=== PATIENT | female | born 1990 ===

== ENCOUNTER 2021-03-31 23:29 | Inpatient (IN) | payer OTHER ==
--- OUTSIDE RECORDS SUMMARY | 2021-03-31 23:33 | XMS REPORT | Continuity of Care Document ---
:1990 Author Organization [facility] t Address [address] [place] [address] Care Team Providers Name Role Phone Radiology Attending Clinician Unavailable Milla Attending Clinician Doctor Unassigned, Name Attending Clinician Unavailable Argyle, Resident Attending Clinician Unavailable Nalini Attending Clinician [phone] NONE Attending Clinician Unavailable NONE Admitting Clinician Unavailable Problems This patient has no known problems. Allergies, Adverse Reactions, Alerts This patient has no known allergies or adverse reactions. Medications This patient has no known medications. Procedures This patient has no known procedures. Encounters Start End Encounter Admission Attending Care Care Encounter Source Date/Time Date/Time Type Type Clinicians Facility Department ID 2021-01-25 2021-01-25 [facility] Radiology [facility] [id number] 15:27:04 23:59:00 Encounter SPECIALTY [id number] CARE [id number] CENTER AT [id number] PRASHANT [address] [place] [address] 2021-01-20 2021-01-20 Letter ADALBERTO Loyola [id number] 00:00:00 00:00:00 (Out) Carmenelias RAGSDALEY [id number] [facility] [id number] 2021-01-11 2021-01-11 Orders Doctor GLOVER [id number] 00:00:00 00:00:00 Only Unassigned, ANTONIO [id number] [facility] [id number] 2021-01-04 2021-01-04 Office Pool, [facility] [id number] 12:46:28 14:34:15 Visit Resident [facility] [id number] CLINICS [id number] 2020-08-04 2020-08-04 Outpatient Nalini, WDOCS CHWDOCS [id number] 11:00:00 11:00:00 [facility] [id number] Results Test Description Test Time Test Comments Results Result Comments Source PROLACTIN, Serum 2020-04-06 07:49:00 Test Item Value Reference Range Interpretation Comme nts PROLACTIN (test code = 240072) 21.2 ng/mL 4.8-23.3 N PERFORMED AT: [facility] [address] [id number] [employer]: Cayetano Silva MD PHONE: [phone] [id number] 12:01:00 Test Item Value Reference Range Interpretation Comments Valproic Acid (test 56.0 ug/ml 50.0-100.0 Referenc e Range has code = VALPR) been adjusted to reflect Methodo logy recommendations . [id number] 12:01:00 Test Item Value Reference Range Interpretation Comments Sodium (test code = 138 mmol/l 137-145 NA) Potassium (test 4.3 mmol/l 3.5-5.1 code = K) Chloride (test code 102 mmol/l 98-107 = CL) Calcium (test code 8.8 mg/dl 8.5-10.1 = CALC) CO2 (test code = 28 mmol/l 21-32 CO2) Glucose (test code 66 mg/dl 74-106 L = GLU) BUN (test code = 14.0 mg/dl 7.0-18.0 BUN) Creatinine (test 0.6 mg/dl 0.5-1.3 code = CREA) T Protein (test 6.6 gm/dl 6.4-8.2 code = TP) Albumin (test code 3.4 gm/dl 3.4-5.0 = ALB) A/G Ratio (test 1.1 % 1.1-2.2 code = AGRAT) AST (SGOT) (test 10 U/L 15-37 L code = AST) ALT (SGPT) (test 14 U/L 13-61 code = ALT) Alkaline Phos (test 54 U/L 45-117 code = ALKP) Total Bilirubin 0.3 mg/dl 0.2-1.0 (test code = TBIL) Globulin (test code 3.2 gm/dl 2.3-3.5 = GLOBU) Calcium, Corrected 9.3 mg/dl 8.4-10.2 Various f ormulas exist (test code = for corrected s renae CALCCORR) calcium results , each yielding differ ent values. This corrected resul t was based on the fo rmula: Corrected Calci um = SerumCalcium + [0.8 * ( 4 - SerumAlbu min)] EGFR if >60 [place] Islander (test code mL/min/1.73m\\ = EGFRAA) S\\2 EGFR if Non- >60 Estimate d Glomerular [place]er (test code mL/min/1.73m\\ Filtrat ion Rate (eGFR) = EGFRNA) S\\2 Reference Inter vals Decision Points for 18 years and older and average body ma ss: >= 60 Does not exc lude kidney disease. 30 - 59 Suggests modera te chronic kidney disease and indicat es the need for furthe r investigation including asses sment of proteinuria and cardiovascular factors. < 30 Usually in dicates a need for refe rral for assessment and management of c hronic kidney failure. CBC WITH AUTO [id number] 11:41:00 Test Item Value Reference Range Interpretation Comments WBC (test code = 7.07 10\\S\\3/ul 4.80-10.80 WBC) RBC (test code = 4.66 10\\S\\6/ul 4.20-5.40 RBC) Hemoglobin (test 13.4 gm/dl 12.0-14.0 code = HGB) Hematocrit (test 40.4 % 37.0-47.0 code = HCT) MCV (test code = 86.7 fL 81.0-99.0 MCV) MCH (test code = 28.8 pg 27.0-31.0 MCH) MCHC (test code = 33.2 gm/dl 33.0-37.0 MCHC) RDW (test code = 14.8 % 11.5-14.5 H RDWVC) Platelet (test code 335 10\\S\\3/ul 130-400 = PLT) MPV (test code = 9.1 fL 7.4-10.4 A "NOT MEASUR ED" MPV) RESULTS ARE DIS PLAYED WHEN THE INSTRU MENT HAS A SUPPRESSE D OR UNREPORTABLE RE SULT. THIS WILL MOST OFTEN HAPPEN WITH THE MPV WHEN THERE IS A N ABNORMAL PLATEL ET DISTRIBUTION DU E TO A CRITICAL LOW VA LUE OR PLATELET CLUMPI NG. THE RDW MAY BE SUPPRESSED IF T HERE ARE MULTIPLE PE AKS PRESENT ON THE RBC HISTOGRAM. IN THIS CASE, A MANUAL REVIEW OF THE SLIDE WI LL BE PERFORMED, AND RBC MORPHOLOGY WILL BE NOTED ON THE RE PORT. NE% (test code = 44.4 % 42.0-75.0 NE) LY% (test code = 46.0 % 13.0-42.0 H LY) MO% (test code = 6.9 % 4.0-14.0 MO) EO% (test code = 1.7 % 1.0-5.0 EO) BA% (test code = 0.6 % 0.0-3.0 BA) IG% (test code = 0.4 % 0.0-0.4 IG%)
[2021-04-01 02:10] LABS: Urine RBC >50 /HPF (NONE SEEN)
[2021-04-01 02:11] LABS: Urine Bacteria >50 /HPF (<20); Urine Mucus 2+ /HPF (NONE SEEN)
[2021-04-01] MEDS ORDERED: ACETAMINOPHEN 500 MG TAB ONE (02:19)
[2021-04-01] MEDS ORDERED: ONDANSETRON 4 MG/2 ML VIAL ONE ×2 (02:19→03:35)
[2021-04-01] MEDS ORDERED: NA CHLORIDE 0.9% 2,000 ML ONE (02:20)
[2021-04-01] MEDS ORDERED: FAMOTIDINE 20 MG/2 ML VIAL IV ONE (02:20)
[2021-04-01 02:45] LABS: Absolute Lymphocytes (CBC) 1.3 K/uL (0.7-4.9); Basophils % 0.1 % (0-1.3); Hematocrit 36.7 % (36.0-45.0); Lymphocytes % 7.2 % (15.3-44.8); MPV 7.8 fL (7.6-11.3); RBC Red Blood Cell Count 4.39 M/uL (3.86-4.86)
[2021-04-01 02:48] LABS: Protime INR 1.46
[2021-04-01] MEDS ORDERED: CEFTRIAXONE/SWI 1gm 1 GM/10 ML SYR ONE (03:08)
[2021-04-01 03:29] LABS: Blood Morphology Comment NOT SEEN (NOT SEEN); Platelet Estimate ADEQ
--- NOTE | 2021-04-01 03:45 | EDPHYS ---
Physician Documentation [facility] Name: Gabby Mahoney Age: 30 yrs Sex: Female : 1990 Arrival Date: 03/31/2021 Time: 23:33 Bed 14 Private MD: ED Physician Javy Winslow HPI: 04/01 02:39 This 30 yrs old Female presents to ER via Ambulatory with complaints of Headache, mh7 Nausea/Vomiting. 02:39 The patient presents to the emergency department with nausea, that is moderate, mh7 vomiting, that is intermittent, described as clear fluid. Onset: The symptoms/episode began/occurred 5 day(s) ago. Possible causes: unknown. The symptoms are aggravated by nothing. The symptoms are alleviated by nothing. 02:40 Associated signs and symptoms: Pertinent positives: abdominal pain, fever, nausea, mh7 vomiting, chills, headache. Severity of symptoms: At their worst the symptoms were moderate 2 day(s) ago, in the emergency department the symptoms are unchanged. 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 - Social history:: Smoking status: Reported history of juuling and/or vaping. ROS: 02:40 Eyes: Negative for injury, pain, redness, and discharge, ENT: Negative for injury, mh7 pain, and discharge, Neck: Negative for injury, pain, and swelling, Cardiovascular: Negative for chest pain, palpitations, and edema, Respiratory: Negative for shortness of breath, cough, wheezing, and pleuritic chest pain, : Negative for injury, bleeding, discharge, and swelling, MS/Extremity: Negative for injury and deformity, Skin: Negative for injury, rash, and discoloration, Psych: Negative for depression, anxiety, suicide ideation, homicidal ideation, and hallucinations, Allergy/Immunology: Negative for hives, rash, and allergies, Endocrine: Negative for neck swelling, polydipsia, polyuria, polyphagia, and marked weight changes, Hematologic/Lymphatic: Negative for swollen nodes, abnormal bleeding, and unusual bruising. Exam: 02:40 Head/Face: Normocephalic, atraumatic. Eyes: Pupils equal round and reactive to light, mh7 extra-ocular motions intact. Lids and lashes normal. Conjunctiva and sclera are non-icteric and not injected. Cornea within normal limits. Periorbital areas with no swelling, redness, or edema. 02:40 Neck: Trachea midline, no thyromegaly or masses palpated, and no cervical lymphadenopathy. Supple, full range of motion without nuchal rigidity, or vertebral point tenderness. No Meningismus. Chest/axilla: Normal chest wall appearance and motion. Nontender with no deformity. No lesions are appreciated. 02:40 Respiratory: Lungs have equal breath sounds bilaterally, clear to auscultation and percussion. No rales, rhonchi or wheezes noted. No increased work of breathing, no retractions or nasal flaring. Abdomen/GI: Soft, non-tender, with normal bowel sounds. No distension or tympany. No guarding or rebound. No evidence of tenderness throughout. 02:40 Skin: Warm, dry with normal turgor. Normal color with no rashes, no lesions, and no evidence of cellulitis. MS/ Extremity: Pulses equal, no cyanosis. Neurovascular intact. Full, normal range of motion. Neuro: Awake and alert, GCS 15, oriented to person, place, time, and situation. Cranial nerves II-XII grossly intact. Motor strength 5/5 in all extremities. Sensory grossly intact. Cerebellar exam normal. Normal gait. Psych: Awake, alert, with orientation to person, place and time. Behavior, mood, and affect are within normal limits. 02:40 Constitutional: The patient appears alert, awake, obviously ill. 02:40 ENT: External ear(s): are unremarkable, Ear canal(s): are normal, clear, TM's: are normal, Nose: is normal, Mouth: Oral mucosa: dry, Posterior pharynx: is normal, airway is patent, Dental exam: normal, Voice: is normal. 02:40 Cardiovascular: Rate: tachycardic, Rhythm: regular, Pulses: no pulse deficits are appreciated, Heart sounds: normal, normal S1and S2, Edema: is not appreciated, JVD: is not appreciated. 02:40 Back: normal spinal alignment noted, CVA tenderness, that is moderate, is noted on the right, muscle spasm, is not present. Vital Signs: 00:11 BP 128 / 77; Pulse 143; Resp 20; Temp 101.1(O); Pulse Ox 99% on R/A; Weight 65.77 kg; em Height 5 ft. 3 in. (160.02 cm); Pain 10/10; 01:45 BP 116 / 82; Pulse 141; Resp 27; Temp 103.2; Pulse Ox 99% on R/A; Pain 0/10; fu 03:00 BP 101 / 80; Pulse 120; Resp 20; Temp 100.2(O); Pulse Ox 98% on R/A; Pain 0/10; fu 04:00 BP 106 / 71; Pulse 102; Resp 18; Pulse Ox 95% on R/A; fu 05:15 BP 97 / 62; Pulse 88; Resp 19; Temp 98.2(O); Pulse Ox 98% on R/A; fu 00:11 Body Mass Index 25.68 (65.77 kg, 160.02 cm) em MDM: 03:42 Differential diagnosis: Nonspecific abd pain, gastritis, UTI, Pyelonephritis. Data [facility] reviewed: vital signs, nurses notes, lab test result(s), CBC, electrolytes, urinalysis. Data interpreted: Pulse oximetry: on room air is 98 %. Interpretation: normal. Counseling: I had a detailed discussion with the patient and/or guardian regarding: the historical points, exam findings, and any diagnostic results supporting the discharge/admit diagnosis, the presence of at least one elevated blood pressure reading (>120/80) during this emergency department visit, lab results, radiology results, the need for further work-up and treatment in the hospital. Response to treatment: the patient's symptoms have markedly improved after treatment. 03:[address] [facility] 04/01 01:14 Order name: Urine Culture [facility] 04/01 01:14 Order name: Amylase, Serum [facility] 04/01 01:14 Order name: Basic Metabolic Panel [facility] 04/01 01:14 Order name: Blood Culture Adult (2) [facility] 04/01 01:14 Order name: CBC with Diff; Complete Time: 03:41 [facility] 04/01 01:14 Order name: Ckmb [facility] 04/01 01:14 Order name: CPK [facility] 04/01 01:14 Order name: Lactate; Complete Time: 03:29 [facility] 04/01 01:14 Order name: LFT's [facility] 04/01 01:14 Order name: Lipase [facility] 04/01 01:14 Order name: Procalcitonin; Complete Time: 03:29 [facility] 04/01 01:14 Order name: Protime (+inr); Complete Time: 02:51 [facility] 04/01 01:14 Order name: Ptt, Activated; Complete Time: 02:51 [facility] 04/01 01:14 Order name: Troponin (emerg Dept Use Only) [facility] 04/01 01:14 Order name: Urine Microscopic Only; Complete Time: 02:17 [facility] 04/01 01:14 Order name: Chest Single View XRAY [facility] 04/01 01:28 Order name: Influenza Screen (a \\T\\ B) [facility] 04/01 01:28 Order name: Rapid Strep [facility] 04/01 01:28 Order name: Influenza Screen (A ; Complete Time: 03:29 [facility] 04/01 01:28 Order name: Group A Streptococcus Rapid Sc; Complete Time: 03:29 [facility] 04/01 02:23 Order name: CT Head Brain wo Cont [facility] 04/01 02:23 Order name: CT Abd/Pelvis - IV Contrast Only [facility] 04/01 02:37 Order name: Glucose, Ancillary Testing; Complete Time: 02:41 [facility] 04/01 02:49 Order name: Manual Differential; Complete Time: 03:41 [facility] 04/01 03:22 Order name: Throat Culture [facility] 04/01 04:07 Order name: COVID-19 : Document "Date of Symptom Onset" if Symptomatic. [facility] 04/01 05:14 Order name: SARS-COV-2 RT PCR [facility] 04/01 01:14 Order name: Accucheck; Complete Time: 02:43 [facility] 04/01 01:14 Order name: Cardiac monitoring; Complete Time: 02:43 [facility] 04/01 01:14 Order name: EKG - Nurse/Tech; Complete Time: 02:42 [facility] 04/01 01:14 Order name: IV Saline Lock - Large Bore; Complete Time: 02:42 [facility] 04/01 01:14 Order name: Labs collected and sent; Complete Time: 02:43 [facility] 04/01 01:14 Order name: O2 Per Protocol; Complete Time: 02:43 04/01 01:14 Order name: O2 Sat Monitoring; Complete Time: 02:43 04/01 01:14 Order name: Urine Dipstick-Ancillary (obtain specimen); Complete Time: 02:10 04/01 01:28 Order name: Urine Test (obtain specimen); Complete Time: 02:10 7 Administered Medications: 02:08 Drug: Pepcid (famotidine) 20 mg Route: IVP; Site: right antecubital; fu 03:09 Follow up: Response: No adverse reaction fu 02:09 Drug: Zofran (Ondansetron) 4 mg Route: IVP; Site: right antecubital; fu 03:09 Follow up: Response: Nausea unchanged fu 02:10 Drug: Acetaminophen 1000 mg Route: PO; fu 03:10 Follow up: Response: Temperature is decreased fu 02:10 Drug: NS 0.9% (30 ml/kg) 30 ml/kg Route: IV; Rate: bolus; Site: left antecubital; fu 03:00 Drug: Rocephin (cefTRIAXone) 1 grams Route: IV; Rate: per protocol; Site: right forearm;fu 03:17 Drug: Zofran (Ondansetron) 4 mg Route: IVP; Site: right forearm; fu 04:05 Follow up: Response: No adverse reaction fu 03:23 Drug: NS 0.9% (30 ml/kg) 30 ml/kg Route: IV; Rate: bolus; Site: right forearm; fu 04:48 Drug: NS 0.9% 1000 ml Route: IV; Rate: 125 ml/hr; Site: right forearm; fu 04:49 Drug: Potassium Chloride 20 mEq Route: IV; Rate: calculated rate; Site: right fu antecubital; 04:49 Drug: Ibuprofen 600 mg Route: PO; fu 05:24 Follow up: Response: Temperature is decreased fu Disposition: 04/01/21 03:44 Hospitalization ordered by Brandon Ardon for Inpatient Admission. Preliminary diagnosis are Sepsis, Pyelonephritis. - Bed requested for Telemetry/MedSurg (Inpatient). - Status is Inpatient Admission. fu - Condition is Stable. - Problem is new. - Symptoms have improved. Signatures: Dispatcher [employer] Oseas Pierson, RN RN Neo Rodas, LABORATORY SAMPLER-C LABORATORY SAMPLER-Cla1 Enmanuel Jean, RN BILLY Javy Winslow MD MD [facility] Camila Whitlock RN RN rd1 Corrections: (The following items were deleted from the chart) 05:20 03:44 Hospitalization Ordered by Brandon Ardon MD for Inpatient Admission. Preliminary rd1 diagnosis is Sepsis; Pyelonephritis. Bed requested for Telemetry/MedSurg (Inpatient). Status is Inpatient Admission. Condition is Stable. Problem is new. Symptoms have improved. 7 05:25 05:20 04/01/2021 03:44 Hospitalization Ordered by Brandon Ardon MD for Inpatient rd1 Admission. Preliminary diagnosis is Sepsis; Pyelonephritis. Bed requested for Telemetry/MedSurg (Inpatient). Status is Inpatient Admission. Condition is Stable. Problem is new. Symptoms have improved. rd1 06:21 05:25 04/01/2021 03:44 Hospitalization Ordered by Brandon Ardon MD for Inpatient fu Admission. Preliminary diagnosis is Sepsis; Pyelonephritis. Bed requested for Telemetry/MedSurg (Inpatient). Status is Inpatient Admission. Condition is Stable. Problem is new. Symptoms have improved. rd1
--- NOTE | 2021-04-01 03:45 | ER ---
Nurse's Notes [facility] Name: Gabby Mahoney Age: 30 yrs Sex: Female : 1990 Arrival Date: 03/31/2021 Time: 23:33 Bed 14 Private MD: Diagnosis: Sepsis;Pyelonephritis Presentation: 04/01 00:11 Chief complaint: Patient states: frontal headache for 5 days, also reports N/V fatigue em and chills. Coronavirus screen: Client denies travel out of the [place] in the last 14 days. Ebola Screen: Patient negative for fever greater than or equal to 101.5 degrees Fahrenheit, and additional compatible Ebola Virus Disease symptoms Patient denies exposure to infectious person. Patient denies travel to an Ebola-affected area in the 21 days before illness onset. No symptoms or risks identified at this time. Initial Sepsis Screen: Does the patient meet any 2 criteria? HR > 90 bpm. Does the patient have a suspected source of infection? No. Patient's initial sepsis screen is negative. Risk Assessment: Do you want to hurt yourself or someone else? Patient reports no desire to harm self or others. Onset of symptoms was April 01, 2021. 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 - Social history:: Smoking status: Reported history of juuling and/or vaping. Screenin:02 Abuse screen: Denies threats or abuse. Nutritional screening: No deficits noted. fu Tuberculosis screening: No symptoms or risk factors identified. Fall Risk None identified. Assessment: 00:57 General: Appears uncomfortable, Behavior is calm, cooperative, appropriate for age, fu Denies fever. Pain: Complains of pain in head, back Pain does not radiate. Pain currently is 9 out of 10 on a pain scale. Pain began 5 days ago. Neuro: Level of Consciousness is awake, alert, obeys commands, Oriented to person, place, time, situation, Fixed Assets Accountant are equal bilaterally Moves all extremities. Gait is steady, Speech is normal, Facial symmetry appears normal. Cardiovascular: Reports rapid heart rate "at times". Respiratory: Respiratory effort is even, unlabored, Respiratory pattern is regular. GI: Reports diarrhea, nausea, vomiting, loss of appetite. : Reports burning with urination. EENT: No signs and/or symptoms were reported regarding the EENT system. 02:30 Reassessment: Patient and/or family updated on plan of care and expected duration. Pain fu level reassessed. Patient is alert, oriented x 3, equal unlabored respirations, skin warm/dry/pink. 03:21 Reassessment: Patient and/or family updated on plan of care and expected duration. Pain fu level reassessed. Patient is alert, oriented x 3, equal unlabored respirations, skin warm/dry/pink. 05:16 Reassessment: Received call from Neo Salgado NP stating that admission orders are in fu but not to send patient to the floor until the CT results are in. Vital Signs: 00:11 BP 128 / 77; Pulse 143; Resp 20; Temp 101.1(O); Pulse Ox 99% on R/A; Weight 65.77 kg; em Height 5 ft. 3 in. (160.02 cm); Pain 10/10; 01:45 BP 116 / 82; Pulse 141; Resp 27; Temp 103.2; Pulse Ox 99% on R/A; Pain 0/10; fu 03:00 BP 101 / 80; Pulse 120; Resp 20; Temp 100.2(O); Pulse Ox 98% on R/A; Pain 0/10; fu 04:00 BP 106 / 71; Pulse 102; Resp 18; Pulse Ox 95% on R/A; fu 05:15 BP 97 / 62; Pulse 88; Resp 19; Temp 98.2(O); Pulse Ox 98% on R/A; fu 00:11 Body Mass Index 25.68 (65.77 kg, 160.02 cm) em ED Course: 03/31 23:33 Patient arrived in ED. bp1 04/01 00:13 Triage completed. em 00:14 Arm band placed on. em 00:36 Enmanuel Jean RN is Primary Nurse. fu 00:57 Javy Winslow MD is Attending Physician. [facility] 01:02 Patient has correct armband on for positive identification. Bed in low position. Call fu light in reach. Side rails up X 1. lunchroom monitor on. Pulse ox on. NIBP on. Warm blanket given. 01:30 Inserted saline lock: 22 gauge in right antecubital area, using aseptic technique. fu 02:10 Urine Culture Sent. fu 02:19 Chest Single View XRAY In Process Unspecified. EDMS 02:28 Inserted saline lock: 20 gauge in right forearm, using aseptic technique. Blood rr5 collected. 02:28 First set of blood cultures drawn by me. rr5 02:40 Second set of blood cultures drawn by me. rr5 02:42 Influenza Screen (A Sent. fu 02:42 Rapid Strep Sent. fu 02:42 Influenza Screen (a \\T\\ B) Sent. fu 03:31 Notified ED physician of a critical lab result(s). band 11. rr5 03:44 Brandon Ardon MD is Hospitalizing Provider. [facility] 04:17 COVID-19 : Document "Date of Symptom Onset" if Symptomatic. Sent. fu 05:33 No provider procedures requiring assistance completed. fu 05:33 Patient admitted, IV remains in place. fu Administered Medications: 02:08 Drug: Pepcid (famotidine) 20 mg Route: IVP; Site: right antecubital; fu 03:09 Follow up: Response: No adverse reaction fu 02:09 Drug: Zofran (Ondansetron) 4 mg Route: IVP; Site: right antecubital; fu 03:09 Follow up: Response: Nausea unchanged fu 02:10 Drug: Acetaminophen 1000 mg Route: PO; fu 03:10 Follow up: Response: Temperature is decreased fu 02:10 Drug: NS 0.9% (30 ml/kg) 30 ml/kg Route: IV; Rate: bolus; Site: left antecubital; fu 03:00 Drug: Rocephin (cefTRIAXone) 1 grams Route: IV; Rate: per protocol; Site: right forearm;fu 03:17 Drug: Zofran (Ondansetron) 4 mg Route: IVP; Site: right forearm; fu 04:05 Follow up: Response: No adverse reaction fu 03:23 Drug: NS 0.9% (30 ml/kg) 30 ml/kg Route: IV; Rate: bolus; Site: right forearm; fu 04:48 Drug: NS 0.9% 1000 ml Route: IV; Rate: 125 ml/hr; Site: right forearm; fu 04:49 Drug: Potassium Chloride 20 mEq Route: IV; Rate: calculated rate; Site: right fu antecubital; 04:49 Drug: Ibuprofen 600 mg Route: PO; fu 05:24 Follow up: Response: Temperature is decreased fu Outcome: 03:44 Decision to Hospitalize by Provider. [facility] 06:10 Admitted to Med/surg accompanied by nurse, room 224, Report called to Mohini CERVANTES fu 06:10 Condition: stable 06:10 Instructed on the need for admit, Demonstrated understanding of instructions. 06:21 Patient left the ED. fu Signatures: Dispatcher [employer] Oseas Pierson, RN BILLY Enmanuel Jean RN RN Brandon Merritt RN RN rr5 Yazmin Martinez Maurice, MD MD 7 Corrections: (The following items were deleted from the chart) 03:21 03:00 BP 101 / 80; Pulse 120bpm; Resp 20bpm; Pulse Ox 98% RA; Pain 0/10; fu fu 05:23 05:15 BP 97 / 62; Pulse 88bpm; Resp 19bpm; Pulse Ox 98% RA; fu fu
[2021-04-01 04:05] LABS: ALT/SGPT 17 U/L (12-78); AST/SGOT 15 U/L (15-37); Albumin 2.7 g/dL (3.4-5.0); Alkaline Phosphatase 61 U/L (45-117); Amylase 12 U/L (25-115); BUN Blood Urea Nitrogen 14 mg/dL (7-18); Bicarbonate 22 mmol/L (21-32); Bilirubin Direct 0.3 mg/dL (0-0.2); Bilirubin Total 0.6 mg/dL (0.2-1.0); CKMB Creatine Kinase MB < 1.0 ng/mL (1.0-3.6); Creatine Phosphokinase 36 U/L (26-192); Glucose Level 121 mg/dL (74-106); Lipase 12 U/L (73-393); Protein, Total 7.8 g/dL (6.4-8.2); Sodium Level 134 mmol/L (136-145); Troponin (Emerg Dept Use Only) < 0.02 ng/mL (0.0-0.045)
[2021-04-01 04:06] LABS: Potassium 2.9 mmol/L (3.5-5.1)
[2021-04-01] MEDS ORDERED: NA CHLORIDE 0.9% 1,000 ML ONE (04:44)
[2021-04-01] MEDS ORDERED: IBUPROFEN 200 MG TAB PO ONE (04:44)
[2021-04-01] MEDS ORDERED: IBUPROFEN 400 MG TAB ONE (04:44)
[2021-04-01] MEDS ORDERED: KCL 20 MEQ/100 mL IVPB 20 MEQ/100 ML BAG IV ONE (04:45)
--- NOTE | 2021-04-01 05:20 | P.HP ---
Certification for Inpatient Patient admitted to: Inpatient With expected LOS: >2 Midnights Patient will require the following post-hospital care: None Practitioner: I am a practitioner with admitting privileges, knowledge of patient current condition, hospital course, and medical plan of care. Services: Services provided to patient in accordance with Admission requirements found in Title 42 Section 412.3 of the Code of Federal Regulations <Neo Salgado - Last Filed: 04/01/21 05:30> Patient History Date of Service: 04/01/21 Reason for admission: Sepsis, pyelonephritis History of Present Illness: 30-year-old female with history of COPD, asthma, PCOS, general herpes presents to emergency department for 1 week of dysuria, nausea, dizziness. Upon arrival to the emergency department patient febrile to 103, tachycardic to 140. Patient evaluated in the emergency department, labs significant for white blood cell count 18.7 with 11% bands sodium 134 potassium 2.9 GFR 68 glucose 121 lactic acid 1.9 pro calcitonin 1.51 urinalysis greater than 50 bacteria greater than 50 red blood cell greater than 50 white blood cell, blood in urine cultures obtained. Patient given sepsis fluid bolus the emergency department, blood pressure responded well, currently blood pressure around 110 systolic heart rate around 110. Patient with sepsis without severe sepsis or septic shock at this time. ED provider wishes to admit for further evaluation and management. - Past Medical/Surgical History -: PCOS -: Asthma, COPD -: Genital herpes -: Caesarean section Psychosocial/ Personal History: Works at [employer], lives with family - Family History Mother -: Hypertension - Social History Smoking Status: Current some day smoker Alcohol use: Yes CD- Drugs: Yes Caffeine use: Yes Place of Residence: Home <Neo Salgado - Last Filed: 04/01/21 05:30> Date of Service: 04/01/21 <Brandon Ardon - Last Filed: 04/01/21 13:16> Allergies promethazine [From Phenergan] Allergy (Verified 04/01/21 11:26) unknown Review of Systems 10-point ROS is otherwise unremarkable General: Fever, Chills, Weakness, Malaise, As per HPI Genitourinary: Dysuria, Frequency, Urgency <Neo Salgado - Last Filed: 04/01/21 05:30> Physical Examination - Physical Exam General: Alert, In no apparent distress, Oriented x3 HEENT: Atraumatic, PERRLA, Mucous membr. moist/pink Neck: Supple, 2+ carotid pulse no bruit, No LAD Respiratory: Clear to auscultation bilaterally, Normal air movement Cardiovascular: Regular rate/rhythm, Normal S1 S2 Gastrointestinal: Normal bowel sounds, No tenderness Musculoskeletal: No tenderness, Other (Mild CVA tenderness bilaterally) Integumentary: No rashes Neurological: Normal speech, Normal strength at 5/5 x4 extr, Normal tone, Normal affect Lymphatics: No axilla or inguinal lymphadenopathy - Studies Laboratory Data (last 24 hrs) 04/01/21 02:28: PT 16.9 H, INR 1.46, APTT 31.1 04/01/21 02:28: WBC 18.70 H, Hgb 12.6, Hct 36.7, Plt Count 265 04/01/21 02:28: Sodium 134 L, Potassium 2.9 L*, BUN 14, Creatinine 0.96, Glucose 121 H, Total Bilirubin 0.6, AST 15, ALT 17, Alkaline Phosphatase 61, Amylase 12 L, Lipase 12 L Microbiology Data (last 24 hrs): 04/01/21 02:40 Nasopharnyx Influenza Type A Antigen Screen - Final 04/01/21 02:40 Nasopharnyx Influenza Type B Antigen Screen - Final 04/01/21 02:40 Throat Group A Streptococcus Rapid Screen - Final <Neo Salgado - Last Filed: 04/01/21 05:30> - Studies Laboratory Data (last 24 hrs) 04/01/21 02:28: PT 16.9 H, INR 1.46, APTT 31.1 04/01/21 02:28: WBC 18.70 H, Hgb 12.6, Hct 36.7, Plt Count 265 04/01/21 02:28: Sodium 134 L, Potassium 2.9 L*, BUN 14, Creatinine 0.96, Glucose 121 H, Total Bilirubin 0.6, AST 15, ALT 17, Alkaline Phosphatase 61, Amylase 12 L, Lipase 12 L Microbiology Data (last 24 hrs): 04/01/21 02:40 Nasopharnyx Influenza Type A Antigen Screen - Final 04/01/21 02:40 Nasopharnyx Influenza Type B Antigen Screen - Final 04/01/21 02:40 Throat Group A Streptococcus Rapid Screen - Final <Ardon,Brandon - Last Filed: 04/01/21 13:16> Assessment and Plan - Plan Assessment Sepsis without severe sepsis or septic shock secondary to UTI/pyelonephritis Hypokalemia COPD/asthma Plan Sepsis without severe sepsis or septic shock secondary to UTI/pyelonephritis: Patient blood pressure improved still relatively soft with systolic around 105- 110 and heart rate around 105-110 as well. Lactate 1.9 assigned of end-organ damage at this time. Will admit to the floor with aggressive IV fluids, antibiotics. Blood and urine cultures obtained and will be followed. Clear liquids, advance as tolerated. DVT prophylaxis Lovenox 40 mg subcutaneous once daily. Hypokalemia: Potassium protocol in place, replaced in the emergency department. COPD/asthma: P.r.n. medications. Discharge Plan: Home Plan to discharge in: Greater than 2 days - Advance Directives Does patient have a Living Will: No Does patient have a Durable POA for Healthcare: No - Code Status/Comfort Care Code Status Assessed: Yes (Full code) Critical Care: No Time Spent Managing Pts Care (In Minutes): 55 <Neo Salgado - Last Filed: 04/01/21 05:30> - Plan remains borderline hypotensive this morning, will give additional bolus. patient ambulated in room without lightheadedness/dizziness <Brandon Ardon - Last Filed: 04/01/21 13:16>
--- NOTE | 2021-04-01 05:31 | P.INFCA ---
Sepsis Focused Assessment - Focused Assessment Complete? Sepsis Focused Assessment Completed?: Yes - Sepsis Screen Result Severe Sepsis: Negative Septic Shock: Negative - Evaluation Current stage of sepsis: Ruled out Reason for ruling out sepsis: lactate WNL, BP/HR imp. no end organ dmg - Vital Signs Reviewed: Yes Temperature: 99.2 F Heart rate: 98 Blood Pressure: 102/70 Respiratory Rate: 18 O2 Sat by Pulse Oximetry: 100 - Examination Date exam was performed: 04/01/21 Time exam was performed: 05:31
[2021-04-01] MEDS: NA CHLORIDE 0.9% 1,000 ML IV SCH ×3 (05:59→16:51)
[2021-04-01] MEDS ORDERED: HYDROCODONE/APAP 5/325 MG TAB PO PRN (05:59)
[2021-04-01] MEDS ORDERED: ALBUTEROL INHALER 60 PUFF/8 GM IH PRN (05:59)
[2021-04-01] MEDS ORDERED: NA CHLORIDE 0.9% 1,000 ML IV ONE (06:56)
--- NOTE | 2021-04-01 08:41 | RAD REPORT ---
EXAM DESCRIPTION: RAD - Chest Single View - 04/01/2021 2:19 am CLINICAL HISTORY: FEVER COMPARISON: None TECHNIQUE: AP portable chest image was obtained 04/01/2021 2:19 am . FINDINGS: Lungs are clear. Heart and vasculature are normal. No measurable pleural effusion and no p neumothorax. No acute bony abnormality seen. No acute aortic findings suspected. IMPRESSION: No acute cardiopulmonary process.
[2021-04-01] MEDS: ENOXAPARIN 40 MG/0.4 ML SQ SCH (09:00)
[2021-04-01] MEDS ORDERED: CEFTRIAXONE 1 GM/NS 50 ML 1 GM/50 ML BAG IV SCH (09:00)
[2021-04-01] MEDS: KCL 20 MEQ/100 mL IVPB 20 MEQ/100 ML BAG IV SCH ×2 (09:10→10:00)
[2021-04-01 11:16] VITALS: BMI 25.7
[2021-04-01] MEDS: PANTOPRAZOLE 40MG TABLET PO SCH (14:16)
[2021-04-01] MEDS: ACETAMINOPHEN 500 MG TAB PO PRN ×2 (14:16→18:18)
[2021-04-01] MEDS: ONDANSETRON 4 MG/2 ML VIAL IV PRN ×2 (14:17→19:30)
[2021-04-01] MEDS ORDERED: IBUPROFEN 600 MG TAB PO ONE (18:46)
[2021-04-01] MEDS: NICOTINE 14 MG/PAT TD SCH (19:18)
--- NOTE | 2021-04-01 20:28 | RAD REPORT ---
EXAM DESCRIPTION: CT - Abdomen Pelvis W Contrast - 04/01/2021 6:28 am CLINICAL HISTORY: Abd pain;Flank pain COMPARISON: None Available. TECHNIQUE: CT of the abdomen and pelvis performed following IV administration of iodinated contras t. This exam was performed according to our departmental dose-optimization program, which includes au tomated exposure control, adjustment of the mA and/or kV according to patient size and/or use of iter ative reconstruction technique. FINDINGS: Lung Bases: The visualized lung bases are clear. Bones: No destructive bone lesions identified. Abdomen: Liver: The liver has normal size and density. No intrahepatic biliary dilatation. Gallbladder: No calcified gallstones. Spleen, Pancreas, and Adrenal Glands: The spleen, pancreas, and adrenal glands are unremarkable. Kidneys: Wedge-shaped cortical hypodensities throughout the right kidney with right perinephric fat stranding. Mild right hydronephrosis without obstructing lesion. No left-sided hydronephrosis. Vasculature: Aortoiliac atherosclerosis. IVC is unremarkable. The portal vein is patent. The proxim al visceral and renal arteries are patent. Stomach: The stomach and duodenum have normal course. Other: No free intraperitoneal air. No free fluid or lymphadenopathy. Pelvis: Bladder: Urinary bladder is unremarkable. Bowel: No dilated loops of large or small bowel. Appendix: Normal appendix. Pelvis: Uterus is not enlarged. IMPRESSION: 1. Findings compatible with acute pyelonephritis of the right kidney. Electronically signed by: Tone Christianson 04/01/2021 5:06 AM CDT Due to temporary technical issues with the PACS/Fluency reporting system, reports are being signed by the in house radiologists without review as a courtesy to insure prompt reporting. The interpreting radiologist is fully responsible for the content of the report
--- NOTE | 2021-04-01 20:33 | RAD REPORT ---
EXAM DESCRIPTION: CT - Head Brain Wo Cont - 04/01/2021 6:29 am COMPARISON: None. CLINICAL HISTORY: [facility] HEADACHE TECHNIQUE: Axial images were obtained from skull base to vertex without intravenous contrast. Imag es viewed on bone and brain windows. Multiplanar reformats were performed. Automated exposure contr ol was utilized on this examination as a dose lowering technique. FINDINGS: Brain parenchyma, ventricles, dura, meninges, and extra-axial spaces: Ventricles and sulci are normal. No abnormal attenuation of brain parenchyma is present. No acute intracranial hemor rhage or abnormal extra-axial fluid collections are present. Vascular structures: No hyperdense arteries or veins. Calvarium, mastoid air cells, paranasal sinuses and orbits: The calvarium is normal. The mastoid air cells are clear. Visualized paranasal sinuses are unremarkable. Orbital structures are unremarkable. IMPRESSION: No acute intracranial abnormality. Electronically signed by: Rafat Bravo MD 04/01/2021 5:01 AM CDT Due to temporary technical issues with the PACS/Fluency reporting system, reports are being signed by the in house radiologists without review as a courtesy to insure prompt reporting. The interpreting radiologist is fully responsible for the content of the report
[2021-04-01] MEDS ORDERED: POTASSIUM CL SA 10 MEQ TAB PO ONE (21:00)
[2021-04-02] MEDS: NA CHLORIDE 0.9% 1,000 ML IV SCH ×3 (00:48→08:18)
[2021-04-02] MEDS: CEFTRIAXONE/SWI 1gm 1 GM/10 ML SYR IVP SCH (02:50)
[2021-04-02] MEDS ORDERED: CEFTRIAXONE/SWI 1gm 1 GM/10 ML SYR ONE (03:08)
[2021-04-02] MEDS: IBUPROFEN 200 MG TAB PO PRN ×3 (05:06→20:48)
[2021-04-02 06:01] LABS: Urine Appearance CLEAR (Clear); Urine Bilirubin NEGATIVE (Negative); Urine Blood 3+ (Negative); Urine Color YELLOW (Yellow); Urine Glucose NEGATIVE (Negative); Urine Protein 1+ (Negative); Urine Specific Gravity 1.015 (1.005-1.030)
[2021-04-02 06:24] LABS: Urine Microscopic Reflex ORDER UMIC
[2021-04-02 06:32] LABS: Barbiturates NEGATIVE (NEGATIVE); Benzodiazepines NEGATIVE (NEGATIVE); Cocaine NEGATIVE (NEGATIVE); METHAMPHETAM POSITIVE (NEGATIVE); Methadone NEGATIVE (NEGATIVE); Opiates NEGATIVE (NEGATIVE); Phencyclidine NEGATIVE (NEGATIVE); THC Cannibis NEGATIVE (NEGATIVE)
[2021-04-02 07:37] LABS: Absolute Lymphocytes (CBC) 1.3 K/uL (0.7-4.9); Basophils % 0.2 % (0-1.3); Lymphocytes % 10.3 % (15.3-44.8); MPV 7.8 fL (7.6-11.3); RBC Red Blood Cell Count 3.32 M/uL (3.86-4.86)
[2021-04-02 08:06] LABS: ALT/SGPT 17 U/L (12-78); AST/SGOT 21 U/L (15-37); Albumin 1.9 g/dL (3.4-5.0); Alkaline Phosphatase 55 U/L (45-117); BUN Blood Urea Nitrogen 5 mg/dL (7-18); Bicarbonate 22 mmol/L (21-32); Bilirubin Total 0.2 mg/dL (0.2-1.0); Glucose Level 110 mg/dL (74-106); Magnesium 2.1 mg/dL (1.8-2.4); Protein, Total 5.7 g/dL (6.4-8.2); Sodium Level 143 mmol/L (136-145); Thyroid Stimulating Hormone 0.788 uIU/mL (0.360-3.740)
[2021-04-02] MEDS: ENOXAPARIN 40 MG/0.4 ML SQ SCH (08:18)
[2021-04-02] MEDS: PANTOPRAZOLE 40MG TABLET PO SCH (08:18)
[2021-04-02] MEDS: NICOTINE 14 MG/PAT TD SCH (08:30)
[2021-04-02 11:06] LABS: Urine Bacteria <20 /HPF (<20); Urine RBC >50 /HPF (NONE SEEN)
--- NOTE | 2021-04-02 11:38 | P.PN ---
Subjective Date of Service: 04/02/21 Chief Complaint: Sepsis, pyelonephritis Subjective: Improving (feeling better, more energy/awake, pain improved but still having it (lower back), no nausea) Review of Systems 10-point ROS is otherwise unremarkable Physical Examination - Vital Signs Temperature: 99.9 F Blood Pressure: 138/65 Pulse: 98 Respirations: 16 Pulse Ox (%): 95 Assessment & Plan Physician Review Additional Text: Physical Exam General: alert, NAD, Oriented x3 Respiratory: Clear to auscultation bilaterally, Normal air movement Cardiovascular: Regular rate/rhythm, Normal S1 S2 Gastrointestinal: soft, nontender Musculoskeletal: mild b/l CVA tenderness Integumentary: No rashes Neurological: Normal speech, Normal strength at 5/5 x4 extr, Normal tone, Normal affect Problem List Sepsis without severe sepsis or septic shock secondary to UTI/pyelonephritis Hypokalemia COPD/asthma -with initial hypotension but responded well to IVF -gradually feeling better -dc IVF -continue Abx -f/u culture -leukocytosis improving -PRN pain control VTE: lovenox Code: full Dispo: anticipate dc home in ~24hrs Time Spent Managing Pts Care (In Minutes): 35
[2021-04-02] MEDS ORDERED: POTASSIUM CL SA 10 MEQ TAB PO ONE ×2 (13:00→21:00)
[2021-04-02] MEDS ORDERED: DIVALPROEX ER 250 MG TAB PO SCH (21:00)
[2021-04-02] MEDS ORDERED: AMITRIPTYLINE 25 MG TAB PO SCH (21:00)
[2021-04-02] MEDS: ACYCLOVIR 400 MG TABLET PO SCH (21:06)
[2021-04-03] MEDS: CEFTRIAXONE/SWI 1gm 1 GM/10 ML SYR IVP SCH (02:39)
[2021-04-03 06:12] LABS: Absolute Lymphocytes (CBC) 1.6 K/uL (0.7-4.9); Basophils % 0.2 % (0-1.3); Lymphocytes % 13.6 % (15.3-44.8); MPV 7.9 fL (7.6-11.3); RBC Red Blood Cell Count 3.43 M/uL (3.86-4.86)
[2021-04-03] MEDS ORDERED: LEVOTHYROXINE SOD 0.025 MG TAB PO SCH (06:30)
[2021-04-03] MEDS: IBUPROFEN 200 MG TAB PO PRN (06:34)
[2021-04-03 06:38] LABS: ALT/SGPT 23 U/L (12-78); AST/SGOT 21 U/L (15-37); Alkaline Phosphatase 70 U/L (45-117); BUN Blood Urea Nitrogen 6 mg/dL (7-18); Bicarbonate 23 mmol/L (21-32); Bilirubin Total 0.3 mg/dL (0.2-1.0); Glucose Level 82 mg/dL (74-106); Magnesium 1.8 mg/dL (1.8-2.4); Potassium 3.4 mmol/L (3.5-5.1); Protein, Total 6.3 g/dL (6.4-8.2); Sodium Level 142 mmol/L (136-145)
[2021-04-03] MEDS ORDERED: POTASSIUM CL SA 10 MEQ TAB PO ONE (08:00)
[2021-04-03 08:04] VITALS: BP 116/68
[2021-04-03] MEDS: ENOXAPARIN 40 MG/0.4 ML SQ SCH ×2 (08:54→08:59)
[2021-04-03] MEDS: NICOTINE 14 MG/PAT TD SCH (08:55)
[2021-04-03] MEDS: PANTOPRAZOLE 40MG TABLET PO SCH (08:55)
[2021-04-03] MEDS: ACYCLOVIR 400 MG TABLET PO SCH (08:56)
[2021-04-03] MEDS ORDERED: MAGNESIUM SULFATE 1 gm IVPB 1 GM/100 ML BAG IV ONE (09:00)
[2021-04-03] MEDS ORDERED: CETIRIZINE HCL 5 MG TABLET PO SCH (09:00)
[2021-04-03 09:08] VITALS: O2SAT 91
[2021-04-03 10:27] VITALS: TEMP 99.7
--- NOTE | 2021-04-03 15:53 | EKG ---
Test Date: 2021-04-01 Test Time: 02:33:20 Produce Associate: CARLOS MEASUREMENT RESULTS: Intervals: Rate: 129 VT: 116 QRSD: 72 QT: 322 QTc: 471 [place]: P: 54 VT: 116 QRS: 43 T: 39 INTERPRETIVE STATEMENTS: Sinus tachycardia Nonspecific ST and T wave abnormality Abnormal ECG No previous ECG available for comparison Electronically Signed On 04-03-21 15:47:41 CDT by Jam Gallardo
--- NOTE | 2021-04-03 22:16 | P.DS ---
Admission Date: 04/01/21 Discharge Date: 04/03/21 Disposition: ROUTINE DISCHARGE Discharge Condition: GOOD Reason for Admission: Sepsis, pyelonephritis Procedures: CXR (04/01): Lungs are clear. Heart and vasculature are normal. No measurable pleural effusion and no pneumothorax. No acute bony abnormality seen. No acute aortic findings suspected. IMPRESSION: No acute cardiopulmonary process. CT Abd/pelvis (04/01): FINDINGS: Lung Bases: The visualized lung bases are clear. Bones: No destructive bone lesions identified. Abdomen: Liver: The liver has normal size and density. No intrahepatic biliary dilatation. Gallbladder: No calcified gallstones. Spleen, Pancreas, and Adrenal Glands: The spleen, pancreas, and adrenal glands are unremarkable. Kidneys: Wedge-shaped cortical hypodensities throughout the right kidney with right perinephric fat stranding. Mild right hydronephrosis without obstructing lesion. No left-sided hydronephrosis. Vasculature: Aortoiliac atherosclerosis. IVC is unremarkable. The portal vein is patent. The proximal visceral and renal arteries are patent. Stomach: The stomach and duodenum have normal course. Other: No free intraperitoneal air. No free fluid or lymphadenopathy. Pelvis: Bladder: Urinary bladder is unremarkable. Bowel: No dilated loops of large or small bowel. Appendix: Normal appendix. Pelvis: Uterus is not enlarged. CT Abd/pelvis with contrast Findings compatible with acute pyelonephritis of the right kidney. T Head (04/01): IMPRESSION: No acute intracranial abnormality. FINDINGS: Lung Bases: The visualized lung bases are clear. Problem List Sepsis without severe sepsis or septic shock secondary to UTI/pyelonephritis Hypokalemia COPD/asthma Brief History of Present Illness: 30-year-old female with history of COPD, asthma, PCOS, general herpes presents to emergency department for 1 week of dysuria, nausea, dizziness. Upon arrival to the emergency department patient febrile to 103, tachycardic to 140. Patient evaluated in the emergency department, labs significant for white blood cell count 18.7 with 11% bands sodium 134 potassium 2.9 GFR 68 glucose 121 lactic acid 1.9 pro calcitonin 1.51 urinalysis greater than 50 bacteria greater than 50 red blood cell greater than 50 white blood cell, blood in urine cultures obtained. Patient given sepsis fluid bolus the emergency department, blood pressure responded well, currently blood pressure around 110 systolic heart rate around 110. Patient with sepsis without severe sepsis or septic shock at this time. ED provider wishes to admit for further evaluation and management. Hospital Course: Patient improved with empiric antibiotics and IVF. Discharged with PO antibiotic. Follow up with pcp in 3-5 days. Vital Signs/Physical Exam: Physical Exam General: alert, NAD, Oriented x3 Respiratory: Clear to auscultation bilaterally, Normal air movement Cardiovascular: Regular rate/rhythm, Normal S1 S2 Gastrointestinal: soft, nontender Musculoskeletal: mild b/l CVA tenderness Integumentary: No rashes Neurological: Normal speech, Normal strength at 5/5 x4 extr, Normal tone, Normal affect Temp Pulse Resp BP Pulse Ox 99.7 F 92 H 16 116/68 91 04/03/21 09:00 04/03/21 08:00 04/03/21 08:00 04/03/21 08:00 04/03/21 08:00 Laboratory Data at Discharge: WBC 12.00 K/uL (4.3-10.9) H 04/03/21 06:00 Hgb 9.8 g/dL (12.0-15.0) L 04/03/21 06:00 Hct 29.0 % (36.0-45.0) L 04/03/21 06:00 Plt Count 262 K/uL (152-406) 04/03/21 06:00 PT 16.9 SECONDS (9.5-12.5) H 04/01/21 02:28 INR 1.46 04/01/21 02:28 APTT 31.1 SECONDS (24.3-36.9) 04/01/21 02:28 Sodium 142 mmol/L (136-145) 04/03/21 06:00 Potassium 3.4 mmol/L (3.5-5.1) L 04/03/21 06:00 BUN 6 mg/dL (7-18) L 04/03/21 06:00 Creatinine 0.49 mg/dL (0.55-1.3) L 04/03/21 06:00 Glucose 82 mg/dL (74-106) 04/03/21 06:00 Magnesium 1.8 mg/dL (1.8-2.4) 04/03/21 06:00 Total Bilirubin 0.3 mg/dL (0.2-1.0) 04/03/21 06:00 AST 21 U/L (15-37) 04/03/21 06:00 ALT 23 U/L (12-78) 04/03/21 06:00 Alkaline Phosphatase 70 U/L (45-117) 04/03/21 06:00 Amylase 12 U/L (25-115) L 04/01/21 02:28 Lipase 12 U/L (73-393) L 04/01/21 02:28 Home Medications: Acyclovir 400 mg PO BID 04/02/21 Amitriptyline [Elavil*] 25 mg PO BEDTIME 04/02/21 Cetirizine HCl [Zyrtec] 10 mg PO DAILY 04/02/21 Divalproex Sodium [Divalproex Sodium ER] 500 mg PO BEDTIME 04/02/21 Levothyroxine Sodium [Levothyroxine] 25 mcg PO DAILY 04/02/21 levoFLOXacin [Levaquin] 750 mg PO DAILY 12 Days #12 tab 04/03/21 New Medications: levoFLOXacin [Levaquin] 750 mg PO DAILY 12 Days #12 tab Physician Discharge Instructions: You were found to have a kidney infection. Please follow up with your PCP 3-5 days. Recommend following up with a urologist in the next 2 months given your history of recurrrent UTIs. Diet: Regular Activity: Ad lowell Followup: NONE,NONE [Primary Care Provider] - Time spent managing pt's care (in minutes): 45
[2021-04-13 12:13] LABS: Urine Blood 3+ (Negative); Urine Glucose Negative (Negative); Urine Protein 3+ (Negative); Urine Specific Gravity 1.025 (1.005-1.030)
== END 2021-04-03 11:40 | disposition home or self-care (01) | DRG 872 ==
LOC: ER 23:29 → ERHOLD 04-01 03:55 → 2ND 04-01 05:57
PROVIDERS: ADMIT Hospitalist; ATTEND Hospitalist
DX: A41.9 Sepsis, unspecified organism (principal); N12 Tubulo-interstitial nephritis, not specified as acute or chronic; E87.6 Hypokalemia; J45.909 Unspecified asthma, uncomplicated; F17.210 Nicotine dependence, cigarettes, uncomplicated; Z20.822 Contact with and (suspected) exposure to COVID-19
CPT/HCPCS: 36415; 70450; 71045; 74177; 80048; 80053; 80076; 80307; 81003; 81015; 82150; 82550; 82553; 82947; 83605; 83690; 83735; 84132; 84145; 84439; 84443; 84484; 85025; 85610; 85730; 87040; 87070; 87077; 87081; 87086; 87088; 87186; 87804; 93005; 99285; J0696; J1650; J2405; J3475; J3480; J7030; Q9967; U0003